=== PATIENT | male | born 1985 | race Caucasian/White ===

== ENCOUNTER 2016-07-26 10:57 | Emergency (ER) | payer SELFPAY ==
[2016-07-26] MEDS ORDERED: traMADol HCl 50 MG TAB ONE (11:44)
== END 2016-07-26 11:50 | disposition home or self-care (01) ==
LOC: BURERS 10:57
DX: S39.012A Strain of muscle, fascia and tendon of lower back, initial encounter (principal); K21.9 Gastro-esophageal reflux disease without esophagitis; J45.909 Unspecified asthma, uncomplicated; X58.XXXA Exposure to other specified factors, initial encounter
CPT/HCPCS: 99283